=== PATIENT | male | born 1965 | race Caucasian/White ===

== ENCOUNTER 2020-11-19 22:26 | Emergency (ER) | payer MEDICAID ==
[~2020-11-19] VITALS: Ht 167.6 cm; Wt 98.4 kg
[2020-11-19 22:53] VITALS: BP 140/86
[2020-11-20] MEDS ORDERED: ONDANSETRON 4 MG/2 ML VIAL IVP ONE (01:10)
[2020-11-20] MEDS ORDERED: NACL 0.9% 1,000 ML IV ONE ×2 (01:10)
[2020-11-20] MEDS ORDERED: PANTOPRAZOLE 40 MG INJ VIAL IVP ONE (01:15)
[2020-11-20 01:25] LABS: BASOPHILS % (AUTO) 0.1 % (0.0-2.0); EOSINOPHILS % (AUTO) 0.3 % (0.0-4.0); HEMATOCRIT 47.3 % (36-52); HEMOGLOBIN 16.5 g/dL (12.0-18.0); LYMPHOCYTES # (AUTO) 0.3 K/uL (2.0-11.5); LYMPHOCYTES % (AUTO) 2.8 % (20.5-51.1); MEAN CORPUSCULAR HEMOGLOBIN 32 pg (27-31); MEAN CORPUSCULAR HGB CONC 35 g/dL (33-37); MEAN CORPUSCULAR VOLUME 90.4 fL (80-94); MONOCYTES # (AUTO) 0.3 K/uL (0.8-1.0); MONOCYTES % (AUTO) 2.9 % (1.7-9.3); NEUTROPHILS # (AUTO) 8.7 K/uL (1.8-7.7); NEUTROPHILS % (AUTO) 93.9 % (42.2-75.2); PLATELET COUNT (AUTO) 167 K/uL (140-450); RED BLOOD CELL COUNT(AUTO) 5.23 MIL/uL (4.20-6.10); RED CELL DISTRIBUTION WIDTH 13.5 % (11.6-13.7); WHITE BLOOD COUNT (AUTO) 9.3 K/uL (4.8-10.8)
[2020-11-20 01:34] LABS: ANION GAP 16.9 (8-16); CARBON DIOXIDE 28.2 mmol/L (21-32); CREATININE 0.9 mg/dL (0.6-1.3); POTASSIUM 4.1 mmol/L (3.5-5.1)
[2020-11-20 01:40] LABS: ALBUMIN 3.7 g/dL (3.4-5.0); TOTAL BILIRUBIN 1.3 mg/dL (0.0-1.0)
[2020-11-20] MEDS ORDERED: ONDA-24 SL (01:59)
[2020-11-20 02:37] VITALS: BP 142/61
== END 2020-11-20 02:35 | disposition home or self-care (01) ==
LOC: MED 22:26
DX: R11.2 Nausea with vomiting, unspecified (principal); R19.7 Diarrhea, unspecified; R10.30 Lower abdominal pain, unspecified; Z79.899 Other long term (current) drug therapy
CPT/HCPCS: 36415; 80053; 85025; 96361; 96374; 96375; 99284; C9113; J2405; J7030; 96360; 99283

== ENCOUNTER 2020-11-24 19:46 | Emergency (ER) | payer MEDICAID ==
[~2020-11-24] VITALS: Ht 167.6 cm; Wt 95.3 kg
[~2020-11-24 19:46] MED LIST: ONDA-24 SL
[2020-11-24 19:55] VITALS: BP 116/76
[2020-11-24] MEDS ORDERED: ONDANSETRON 4 MG ODT PO ONE (20:25)
[2020-11-24] MEDS ORDERED: ALUMINUM HYD/MAG/SIMETHICONE 30 ML UDC PO ONE (20:25)
[2020-11-24] MEDS ORDERED: DICYCLOMINE 10 MG CAP PO ONE (20:25)
[2020-11-24] MEDS ORDERED: ONDANSETRON 4 MG ODT ONE (21:51)
[2020-11-24] MEDS ORDERED: DICYCLOMINE 10 MG CAP ONE (21:51)
[2020-11-24] MEDS ORDERED: ALUMINUM HYD/MAG/SIMETHICONE 30 ML UDC ONE (21:51)
[2020-11-24 23:15] LABS: BASOPHILS % (AUTO) 0.4 % (0.0-2.0); EOSINOPHILS # (AUTO) 0.1 K/uL (0-0.4); EOSINOPHILS % (AUTO) 2.5 % (0.0-4.0); HEMATOCRIT 46.5 % (36-52); HEMOGLOBIN 16.3 g/dL (12.0-18.0); LYMPHOCYTES # (AUTO) 1.6 K/uL (2.0-11.5); LYMPHOCYTES % (AUTO) 30.2 % (20.5-51.1); MEAN CORPUSCULAR HEMOGLOBIN 31 pg (27-31); MEAN CORPUSCULAR HGB CONC 35 g/dL (33-37); MEAN CORPUSCULAR VOLUME 88.6 fL (80-94); MONOCYTES # (AUTO) 0.6 K/uL (0.8-1.0); MONOCYTES % (AUTO) 11.7 % (1.7-9.3); NEUTROPHILS # (AUTO) 2.9 K/uL (1.8-7.7); NEUTROPHILS % (AUTO) 55.2 % (42.2-75.2); PLATELET COUNT (AUTO) 165 K/uL (140-450); RED BLOOD CELL COUNT(AUTO) 5.25 MIL/uL (4.20-6.10); RED CELL DISTRIBUTION WIDTH 13.2 % (11.6-13.7); WHITE BLOOD COUNT (AUTO) 5.3 K/uL (4.8-10.8)
[2020-11-24 23:44] LABS: ALBUMIN 3.7 g/dL (3.4-5.0); ANION GAP 16.7 (8-16); CARBON DIOXIDE 28.5 mmol/L (21-32); POTASSIUM 4.2 mmol/L (3.5-5.1); TOTAL BILIRUBIN 0.6 mg/dL (0.0-1.0)
[2020-11-25] MEDS ORDERED: METR500T1 PO (03:34)
[2020-11-25] MEDS ORDERED: FAMO-90 PO (03:34)
[2020-11-25] MEDS ORDERED: CIPR500T4 PO (03:34)
[2020-11-25 03:47] VITALS: BP 112/76
== END 2020-11-25 03:45 | disposition home or self-care (01) ==
LOC: MED 19:46
DX: K52.9 Noninfective gastroenteritis and colitis, unspecified (principal)
CPT/HCPCS: 36415; 74177; 80053; 83690; 84484; 85025; 93005; 99285; Q0162; Q9967

== ENCOUNTER 2020-12-24 13:39 | Emergency (ER) | payer MEDICAID ==
[~2020-12-24] VITALS: Ht 175.3 cm; Wt 96.6 kg
[~2020-12-24 13:39] MED LIST changes: +CIPR500T4 PO; +FAMO-90 PO; +METR500T1 PO
[2020-12-24 13:46] VITALS: BP 123/91
--- NOTE | 2020-12-24 14:05 | NUR ---
PT AMBULATED TO LOBBY
[2020-12-24] MEDS ORDERED: NAPR-54 PO (15:04)
--- NOTE | 2020-12-24 15:08 | NUR ---
C/O RIGHT FOOT INTERMITTENT PAIN X6 MONTHS , PATIENT STATES HE GOT GLASS STUCK IN HIS FOOT AT THE AGE OF 13 AND STATES "THEY TOLD ME IT WOULD NEVER BOTHER ME, BUT NOW IT IS BOTHERING ME". ABLE TO AMBULATE. PMH: HEPATITIS C NKDA
[2020-12-24 15:14] VITALS: BP 123/91
== END 2020-12-24 15:14 | disposition home or self-care (01) ==
LOC: MED 13:39
DX: M79.671 Pain in right foot (principal); G89.29 Other chronic pain
CPT/HCPCS: 73630; 99283

== ENCOUNTER 2021-03-21 16:23 | Emergency (ER) | payer MEDICAID ==
[~2021-03-21] VITALS: Ht 167.6 cm; Wt 99.3 kg
[~2021-03-21 16:23] MED LIST changes: +NAPR-54 PO
[2021-03-21 16:27] VITALS: BP 134/91
[2021-03-21] MEDS ORDERED: NAPR-54 PO (17:19)
[2021-03-21 17:24] VITALS: BP 134/91
== END 2021-03-21 17:25 | disposition home or self-care (01) ==
LOC: MED 16:23
DX: S10.9 Superficial injury of unspecified part of neck (principal); F17.210 Nicotine dependence, cigarettes, uncomplicated; W34.010S Accidental discharge of airgun, sequela; Z71.6 Tobacco abuse counseling
CPT/HCPCS: 70360; 99283

== ENCOUNTER 2021-05-07 06:38 | Emergency (ER) | payer MEDICAID ==
[~2021-05-07] VITALS: Ht 167.6 cm; Wt 98.9 kg
[~2021-05-07 06:38] MED LIST changes: +ONDA-188 SL; -ONDA-24 SL
[2021-05-07 06:41] VITALS: BP 162/77
--- NOTE | 2021-05-07 06:51 | NUR ---
PT TAKEN TO ER BED 03 VIA WHEELCHAIR
--- NOTE | 2021-05-07 06:54 | NUR ---
ERMD at bedside for examination
--- NOTE | 2021-05-07 06:54 | NUR ---
patient c/o left knee pain and left foot pain. patient fell in a puddle. patient was down for a couple of hours since patient blacked out from drinking at friend's house. patient woke up and tried to stand but had extreme pain. 9/10 pulsating and throbbing pain that is constant. patient can wiggle toes but has difficulty walking as pain hits patient. pmh: denies nka
[2021-05-07] MEDS ORDERED: ACETAMINOPHEN EXTRA STRENGTH 500 MG TAB PO ONE (07:00)
[2021-05-07] MEDS ORDERED: KETOROLAC 30 MG/ML VIAL IM ONE (07:00)
--- NOTE | 2021-05-07 07:27 | NUR ---
REPORT RECEIVED FROM PAUL RN FOR CONTINUITY OF CARE
--- NOTE | 2021-05-07 07:27 | NUR ---
Pt report given to Roman WILEY. Transfer of care at this time.
--- NOTE | 2021-05-07 07:27 | NUR ---
Patsy couch in EDM - 05/07/21 at 0835 by [email or web address] REPORT RECEIVED FROM PAUL RN, STATED UNABLE TO ADMINISTER BANANA BAG, DUE MEDICATION NOT BEING ABLE TO PROCESS IN THE EMAR. CALLED PHARMACY STATED NOT ABLE TO MIX BANANA BAG AT THIS TIME AND "WILL TAKE SOME TIME"
[2021-05-07] MEDS ORDERED: IBUP-2213 PO (07:48)
[2021-05-07 08:02] VITALS: BP 150/74
--- NOTE | 2021-05-07 08:02 | NUR ---
Patient discharged with v/s stable. Written and verbal after care instructions given HEAD INJURY and explained. Patient alert, oriented and verbalized understanding of instructions. Ambulatory with steady gait. All questions addressed prior to discharge. ID band removed. Patient advised to follow up with PMD. Rx of IBUPROFEN given. Patient educated on indication of medication including possible reaction and side effects. Opportunity to ask questions provided and answered.
== END 2021-05-07 08:02 | disposition home or self-care (01) ==
LOC: MED 06:38
DX: S09.90XA Unspecified injury of head, initial encounter (principal); M25.572 Pain in left ankle and joints of left foot; M25.562 Pain in left knee; F17.210 Nicotine dependence, cigarettes, uncomplicated; Z79.899 Other long term (current) drug therapy; Z98.890 Other specified postprocedural states; W19.XXXA Unspecified fall, initial encounter; Y93.01 Activity, walking, marching and hiking; Y92.098 Other place in other non-institutional residence as the place of occurrence of the external cause; Y99.8 Other external cause status
CPT/HCPCS: 70450; 73562; 73610; 96372; 99284; J1885

== ENCOUNTER 2021-11-30 15:20 | Emergency (ER) | payer MEDICAID ==
[~2021-11-30] VITALS: Ht 167.6 cm; Wt 98.0 kg
[~2021-11-30 15:20] MED LIST changes: +IBUP-2213 PO
[2021-11-30 15:38] VITALS: BP 178/92
[2021-11-30] MEDS ORDERED: CYCL-711 PO (17:09)
--- NOTE | 2021-11-30 18:06 | NUR ---
NO NURSING CARE RENDEREDPatient discharged with v/s stable. Written and verbal after care instructions given and explained. Patient alert, oriented and verbalized understanding of instructions. Ambulatory with steady gait. All questions addressed prior to discharge. ID band removed. Patient advised to follow up with PMD. Rx of FLEXERIL given. Patient educated on indication of medication including possible reaction and side effects. Opportunity to ask questions provided and answered.
--- NOTE | 2021-11-30 18:33 | NUR ---
PT AMBULATED TO CHAIR C. PER PA ORDER, PTS RIGHT PINKY FINGER WAS PLACED IN A ALUMINIUM FINGER SPLINT WRAPPED WITH 2 INCH KAREEM WRAP. +CMS BEFORE AFTER. PT DID NOT COMPLAIN OF ANY PAIN OR DISCOMFORT. PA NOTFIED.
--- NOTE | 2021-11-30 18:59 | NUR ---
ATTEMPTED TO LOCATE PT FROM LOBBY TO PLACE IN BED. UNABLE TO LOCATE PT AT THIS TIME.
== END 2021-11-30 18:06 | disposition home or self-care (01) ==
LOC: MED 15:20
DX: S63.616A Unspecified sprain of right little finger, initial encounter (principal); M54.50 Low back pain, unspecified; Z79.899 Other long term (current) drug therapy; W01.0XXA Fall on same level from slipping, tripping and stumbling without subsequent striking against object, initial encounter; Y93.89 Activity, other specified; Y92.89 Other specified places as the place of occurrence of the external cause; Y99.8 Other external cause status
CPT/HCPCS: 73140; 81002; 99283